=== PATIENT | male | born 1940 | race Two or more races ===

== ENCOUNTER 2021-06-09 11:07 | Inpatient (IN) | payer MEDICARE, MEDICAID ==
[~2021-06-09] VITALS: Ht 175.3 cm; Wt 81.0 kg
[2021-06-09 12:26] LABS: Basophils # (auto) 0 10 ^3/uL (0-0.2); Basophils % (auto) 0.5 % (0.0-2.0); Eosinophils # (auto) 0.1 10 ^3/uL (0-0.8); Eosinophils % (auto) 0.7 % (0.0-7.0); Hematocrit 42.1 % (41.0-53.0); Hemoglobin 14.2 g/dL (13.5-17.5); Lymphocytes # (auto) 0.8 10 ^3/uL (0.4-5.4); Lymphocytes % (auto) 11.1 % (10.0-50.0); Mean Corpuscular Hemoglobin 30.7 pg (28.0-32.0); Mean Corpuscular Hgb Conc. 33.7 g/dL (32.0-36.0); Monocytes # (auto) 0.3 10 ^3/uL (0-1.3); Monocytes % (auto) 3.8 % (0.0-12.0); Neutrophils # (auto) 6.2 10 ^3/uL (1.6-8.6); Neutrophils % (auto) 83.9 % (37.0-80.0); Red Blood Cells 4.62 10^6/uL (4.5-5.90); Red Cell Distribution Width 13.6 % (11.8-14.3); White Blood Cell 7.4 10^3/uL (4.4-10.8)
[2021-06-09 12:38] LABS: Albumin 3.7 g/dL (3.4-5.0); BUN/Creatinine Ratio 18.8; Calcium 9.1 mg/dL (8.5-10.1); Potassium 4.3 mmol/L (3.5-5.1)
[2021-06-09 12:43] LABS: Bilirubin, Total 0.7 mg/dL (0.2-1.0); Total Protein 7.9 g/dL (6.4-8.2)
[2021-06-09 13:12] LABS: INR 1.07 (0.9-1.15)
[2021-06-09] MEDS ORDERED: NITROGLYCERIN 0.4 MG SL TAB SL PRN ×2 (13:30→17:45)
[2021-06-09] MEDS ORDERED: MORPHINE SULFATE INJECTION 2 MG/ML SYRG IV PRN ×2 (13:30→17:45)
[2021-06-09 13:35] LABS: Urine Bacteria NONE SEEN /hpf (None Seen); Urine Blood TRACE /uL (Negative); Urine Mucus FEW (None Seen); Urine Specific Gravity 1.018 (1.001-1.035); Urine WBC 2 /hpf (0 - 3)
[2021-06-09] MEDS ORDERED: DOCUSATE SOD 100 MG CAP PO PRN (13:45)
[2021-06-09] MEDS ORDERED: ONDANSETRON HCL 4 MG/2 ML VIAL IV PRN (13:45)
[2021-06-09] MEDS ORDERED: METOPROLOL TARTRATE 1MG/1ML-5ML VIAL IV PRN (14:15)
[2021-06-09] MEDS ORDERED: DEXTROSE (50%) 50ML SYRG IV PRN (14:15)
[2021-06-09] MEDS: InsuLIN REG 1unit/0.01ml Soln (100units/ml) SC SCH ×2 (17:00→21:34)
[2021-06-09 17:13] VITALS: BP 106/79
[2021-06-09] MEDS: ACCU-CHEK COMFORT CURVE STRIP VI SCH ×2 (17:28→22:00)
[2021-06-09] MEDS ORDERED: METF-370 PO (17:54)
[2021-06-09] MEDS ORDERED: AMLO-489 PO (17:54)
[2021-06-09] MEDS ORDERED: CHOL100040 PO (17:54)
[2021-06-09] MEDS ORDERED: LOSA-39 PO (17:54)
[2021-06-09] MEDS ORDERED: PEN400T PO (17:54)
[2021-06-09] MEDS ORDERED: ASPI-543 PO (17:54)
[2021-06-09] MEDS ORDERED: SIMV80TA73 PO (17:54)
[2021-06-09] MEDS ORDERED: METO25TA5 PO (17:54)
[2021-06-09] MEDS: METOPROLOL TARTRATE 25 MG TAB PO SCH (22:00)
[2021-06-09] MEDS ORDERED: ATORVASTATIN 20 MG TAB PO SCH (22:00)
[2021-06-09 22:27] VITALS: BP 133/73
[2021-06-10] VITALS (27 sets, daily range): BP systolic 109–150; BP diastolic 60–89
[2021-06-10 05:19] LABS: Basophils # (auto) 0 10 ^3/uL (0-0.2); Basophils % (auto) 0.4 % (0.0-2.0); Eosinophils # (auto) 0.1 10 ^3/uL (0-0.8); Eosinophils % (auto) 0.5 % (0.0-7.0); Hematocrit 42.4 % (41.0-53.0); Hemoglobin 14.3 g/dL (13.5-17.5); Lymphocytes # (auto) 1.4 10 ^3/uL (0.4-5.4); Lymphocytes % (auto) 12.2 % (10.0-50.0); Mean Corpuscular Hemoglobin 30.6 pg (28.0-32.0); Mean Corpuscular Hgb Conc. 33.8 g/dL (32.0-36.0); Mean Corpuscular Volume 90.4 fL (80.0-100.0); Monocytes # (auto) 0.9 10 ^3/uL (0-1.3); Monocytes % (auto) 7.9 % (0.0-12.0); Nucleated Red Blood Cells % 0.1 %; Red Blood Cells 4.68 10^6/uL (4.5-5.90); Red Cell Distribution Width 13.6 % (11.8-14.3); White Blood Cell 11.4 10^3/uL (4.4-10.8)
[2021-06-10 05:47] LABS: Potassium 4.1 mmol/L (3.5-5.1)
[2021-06-10 05:54] LABS: Albumin 3.5 g/dL (3.4-5.0); BUN/Creatinine Ratio 15.2; Calcium 9.3 mg/dL (8.5-10.1)
[2021-06-10 06:02] LABS: Bilirubin, Total 0.9 mg/dL (0.2-1.0); Total Protein 7.7 g/dL (6.4-8.2)
[2021-06-10] MEDS: InsuLIN REG 1unit/0.01ml Soln (100units/ml) SC SCH ×4 (06:23→22:50)
[2021-06-10] MEDS: ACCU-CHEK COMFORT CURVE STRIP VI SCH ×4 (07:00→22:51)
[2021-06-10] MEDS ORDERED: METOPROLOL TARTRATE 1MG/1ML-5ML VIAL IV PRN (08:45)
[2021-06-10] MEDS: METOPROLOL TARTRATE 25 MG TAB PO SCH ×2 (09:07→22:00)
[2021-06-10 09:17] LABS: Cholesterol 139 mg/dL (< 200); HDL Cholesterol 51 mg/dL (40-59); LDL Cholesterol 74 mg/dL (< 100); Triglycerides 110 mg/dL (< 150)
[2021-06-10] MEDS ORDERED: ENOXAPARIN SOD 80 MG/0.8ML SYRINGE SC SCH (10:00)
[2021-06-10] MEDS ORDERED: ASPirin 325 MG TAB PO SCH (10:00)
[2021-06-10] MEDS ORDERED: ENOXAPARIN SOD 40 MG/0.4 ML SYRINGE SC SCH (10:00)
[2021-06-10] MEDS ORDERED: HYDROcodone-ACET 5/325MG TAB PO PRN (11:15)
[2021-06-10] MEDS: dilTIAZem 125mg/125ml BAG KIT 125 ML IV SCH (20:45)
[2021-06-10] MEDS: ATORVASTATIN 20 MG TAB PO SCH (22:40)
[2021-06-10] MEDS ORDERED: AMIODARONE HCL 150 MG in D5W 5% 100 ML IV ONE (22:45)
[2021-06-10] MEDS ORDERED: AMIODARONE 450mg/250ml AE 250 ML IV SCH (23:00)
[2021-06-10] MEDS ORDERED: AMIODARONE HCL (50 MG/ ML) 3 ML VIAL IV ONE (23:10)
[2021-06-11] VITALS (45 sets, daily range): BP systolic 12–152; BP diastolic 53–101
[2021-06-11 03:51] LABS: Basophils # (auto) 0 10 ^3/uL (0-0.2); Basophils % (auto) 0.2 % (0.0-2.0); Eosinophils # (auto) 0 10 ^3/uL (0-0.8); Eosinophils % (auto) 0.1 % (0.0-7.0); Hematocrit 43.2 % (41.0-53.0); Hemoglobin 14.6 g/dL (13.5-17.5); Lymphocytes # (auto) 1.8 10 ^3/uL (0.4-5.4); Lymphocytes % (auto) 13.1 % (10.0-50.0); Mean Corpuscular Hemoglobin 30.5 pg (28.0-32.0); Mean Corpuscular Hgb Conc. 33.9 g/dL (32.0-36.0); Mean Corpuscular Volume 89.9 fL (80.0-100.0); Monocytes # (auto) 1.6 10 ^3/uL (0-1.3); Monocytes % (auto) 11.5 % (0.0-12.0); Neutrophils # (auto) 10.3 10 ^3/uL (1.6-8.6); Neutrophils % (auto) 75.1 % (37.0-80.0); Red Cell Distribution Width 13.1 % (11.8-14.3); White Blood Cell 13.8 10^3/uL (4.4-10.8)
[2021-06-11 04:09] LABS: Potassium 4.2 mmol/L (3.5-5.1)
[2021-06-11 04:14] LABS: BUN/Creatinine Ratio 19.6; Calcium 9.3 mg/dL (8.5-10.1); Magnesium 2.4 mg/dL (1.6-2.6)
[2021-06-11] MEDS: AMIODARONE 450mg/250ml AE 250 ML IV SCH ×2 (06:44→20:00)
[2021-06-11] MEDS: InsuLIN REG 1unit/0.01ml Soln (100units/ml) SC SCH ×4 (06:45→22:00)
[2021-06-11] MEDS: ACCU-CHEK COMFORT CURVE STRIP VI SCH ×4 (06:45→22:25)
[2021-06-11] MEDS: ASPirin 81 mg TAB PO SCH (07:51)
[2021-06-11] MEDS: METOPROLOL TARTRATE 25 MG TAB PO SCH ×2 (10:00→22:00)
[2021-06-11 11:42] LABS: Urine Bacteria NONE SEEN /hpf (None Seen); Urine Blood 2+ /uL (Negative); Urine Mucus FEW (None Seen); Urine Specific Gravity 1.026 (1.001-1.035); Urine WBC 1 /hpf (0 - 3)
[2021-06-11] MEDS: dilTIAZem 125mg/125ml BAG KIT 125 ML IV SCH (20:45)
[2021-06-11] MEDS: ATORVASTATIN 20 MG TAB PO SCH (22:24)
[2021-06-12] VITALS (37 sets, daily range): BP systolic 11–156; BP diastolic 63–93
[2021-06-12 06:44] LABS: Basophils # (auto) 0 10 ^3/uL (0-0.2); Basophils % (auto) 0.4 % (0.0-2.0); Eosinophils # (auto) 0 10 ^3/uL (0-0.8); Eosinophils % (auto) 0.4 % (0.0-7.0); Hematocrit 43.9 % (41.0-53.0); Hemoglobin 15.3 g/dL (13.5-17.5); Lymphocytes # (auto) 1.8 10 ^3/uL (0.4-5.4); Lymphocytes % (auto) 15.6 % (10.0-50.0); Mean Corpuscular Hemoglobin 30.9 pg (28.0-32.0); Mean Corpuscular Hgb Conc. 34.7 g/dL (32.0-36.0); Monocytes # (auto) 1.3 10 ^3/uL (0-1.3); Monocytes % (auto) 11.2 % (0.0-12.0); Neutrophils # (auto) 8.3 10 ^3/uL (1.6-8.6); Neutrophils % (auto) 72.4 % (37.0-80.0); Red Blood Cells 4.94 10^6/uL (4.5-5.90); Red Cell Distribution Width 13.3 % (11.8-14.3); White Blood Cell 11.5 10^3/uL (4.4-10.8)
[2021-06-12] MEDS: InsuLIN REG 1unit/0.01ml Soln (100units/ml) SC SCH ×4 (06:49→21:41)
[2021-06-12] MEDS: ACCU-CHEK COMFORT CURVE STRIP VI SCH ×4 (06:50→21:45)
[2021-06-12 07:02] LABS: BUN/Creatinine Ratio 17.2; Calcium 8.8 mg/dL (8.5-10.1); Magnesium 2.4 mg/dL (1.6-2.6); Potassium 3.6 mmol/L (3.5-5.1)
[2021-06-12] MEDS: METOPROLOL TARTRATE 25 MG TAB PO SCH ×2 (09:59→21:40)
[2021-06-12] MEDS: ASPirin 81 mg TAB PO SCH (09:59)
[2021-06-12] MEDS: AMIODARONE 450mg/250ml AE 250 ML IV SCH (11:00)
[2021-06-12] MEDS: ACETAMINOPHEN 325 MG TAB PO PRN (18:25)
[2021-06-12] MEDS: dilTIAZem 125mg/125ml BAG KIT 125 ML IV SCH (20:45)
[2021-06-12] MEDS: DOCUSATE SOD 100 MG CAP PO SCH (21:36)
[2021-06-12] MEDS: AMIODARONE HCL 200 MG TAB PO SCH (21:36)
[2021-06-12] MEDS: ATORVASTATIN 20 MG TAB PO SCH (21:37)
[2021-06-13 04:50] LABS: Basophils # (auto) 0 10 ^3/uL (0-0.2); Basophils % (auto) 0.3 % (0.0-2.0); Eosinophils # (auto) 0.2 10 ^3/uL (0-0.8); Eosinophils % (auto) 1.6 % (0.0-7.0); Hematocrit 40.7 % (41.0-53.0); Hemoglobin 13.7 g/dL (13.5-17.5); Lymphocytes # (auto) 1.8 10 ^3/uL (0.4-5.4); Mean Corpuscular Hemoglobin 30.8 pg (28.0-32.0); Mean Corpuscular Hgb Conc. 33.5 g/dL (32.0-36.0); Mean Corpuscular Volume 91.9 fL (80.0-100.0); Monocytes # (auto) 1.5 10 ^3/uL (0-1.3); Monocytes % (auto) 13.1 % (0.0-12.0); Neutrophils # (auto) 7.9 10 ^3/uL (1.6-8.6); Red Blood Cells 4.43 10^6/uL (4.5-5.90); Red Cell Distribution Width 13.6 % (11.8-14.3); White Blood Cell 11.5 10^3/uL (4.4-10.8)
[2021-06-13 04:58] LABS: Anion Gap 6 (5-15); BUN/Creatinine Ratio 20.3; Blood Urea Nitrogen 13 mg/dL (7-18); Calcium 6.7 mg/dL (8.5-10.1); Carbon Dioxide 20 mmol/L (21-32); Chloride 114 mmol/L (98-107); GFR African American 154 mL/min; GFR Non-African American 128 mL/min; Glucose 65 mg/dL (74-106); Magnesium 2.3 mg/dL (1.6-2.6); Sodium 140 mmol/L (136-145)
[2021-06-13 05:24] VITALS: BP 137/88
[2021-06-13 05:46] LABS: Potassium 2.9 mmol/L (3.5-5.1)
[2021-06-13] MEDS: InsuLIN REG 1unit/0.01ml Soln (100units/ml) SC SCH ×4 (06:08→22:22)
[2021-06-13] MEDS: ACCU-CHEK COMFORT CURVE STRIP VI SCH ×4 (06:08→22:16)
[2021-06-13] MEDS: POTASSIUM CHL 10MEQ/50ML 50 ML IV SCH ×6 (06:09→15:49)
[2021-06-13 09:00] VITALS: BP 119/77
[2021-06-13] MEDS: ASPirin 81 mg TAB PO SCH (10:00)
[2021-06-13] MEDS: AMIODARONE HCL 200 MG TAB PO SCH ×2 (10:30→22:15)
[2021-06-13] MEDS: DOCUSATE SOD 100 MG CAP PO SCH ×2 (10:31→22:15)
[2021-06-13] MEDS: METOPROLOL TARTRATE 25 MG TAB PO SCH ×2 (10:31→22:16)
[2021-06-13] MEDS: POLYETHYLENE GLYCOL 17 GM PWDR PO SCH (12:40)
[2021-06-13 13:00] VITALS: BP 120/76
[2021-06-13] MEDS ORDERED: POTASSIUM CHL 10MEQ/50ML 50 ML IV ONE ×2 (14:10→15:48)
[2021-06-13 17:12] VITALS: BP 125/68
[2021-06-13 22:00] VITALS: BP 119/71
[2021-06-13] MEDS: ATORVASTATIN 20 MG TAB PO SCH (22:15)
[2021-06-14 05:00] VITALS: BP 112/72
[2021-06-14 06:39] LABS: Basophils # (auto) 0.1 10 ^3/uL (0-0.2); Basophils % (auto) 0.6 % (0.0-2.0); Eosinophils # (auto) 0.3 10 ^3/uL (0-0.8); Eosinophils % (auto) 2.3 % (0.0-7.0); Hematocrit 41.4 % (41.0-53.0); Hemoglobin 14.7 g/dL (13.5-17.5); Lymphocytes # (auto) 2.3 10 ^3/uL (0.4-5.4); Lymphocytes % (auto) 20.2 % (10.0-50.0); Mean Corpuscular Hemoglobin 31.4 pg (28.0-32.0); Mean Corpuscular Hgb Conc. 35.6 g/dL (32.0-36.0); Mean Corpuscular Volume 88.3 fL (80.0-100.0); Monocytes # (auto) 1.3 10 ^3/uL (0-1.3); Monocytes % (auto) 11.5 % (0.0-12.0); Neutrophils # (auto) 7.4 10 ^3/uL (1.6-8.6); Neutrophils % (auto) 65.4 % (37.0-80.0); Nucleated Red Blood Cells % 0.1 %; Red Blood Cells 4.69 10^6/uL (4.5-5.90); Red Cell Distribution Width 13.5 % (11.8-14.3); White Blood Cell 11.4 10^3/uL (4.4-10.8)
[2021-06-14] MEDS: InsuLIN REG 1unit/0.01ml Soln (100units/ml) SC SCH ×4 (06:43→21:35)
[2021-06-14] MEDS: ACCU-CHEK COMFORT CURVE STRIP VI SCH ×4 (06:43→21:33)
[2021-06-14 06:52] LABS: BUN/Creatinine Ratio 17.9; Calcium 8.7 mg/dL (8.5-10.1); Magnesium 2.5 mg/dL (1.6-2.6); Potassium 3.7 mmol/L (3.5-5.1)
[2021-06-14] MEDS: DOCUSATE SOD 100 MG CAP PO SCH ×2 (09:09→21:31)
[2021-06-14] MEDS: AMIODARONE HCL 200 MG TAB PO SCH ×2 (09:09→21:32)
[2021-06-14] MEDS: POLYETHYLENE GLYCOL 17 GM PWDR PO SCH (09:10)
[2021-06-14] MEDS: METOPROLOL TARTRATE 25 MG TAB PO SCH (09:10)
[2021-06-14 09:12] VITALS: BP 123/68
[2021-06-14 09:17] VITALS: BP_SYST 123; BP_SYST 138; BP_DIAS 68; BP_DIAS 73
[2021-06-14] MEDS: ASPirin 81 mg TAB PO SCH (10:54)
[2021-06-14] MEDS ORDERED: ASPirin-EC 81 mg tab PO ONE (11:00)
[2021-06-14 12:00] VITALS: BP 125/65
[2021-06-14] MEDS ORDERED: ERGOCALCIFEROL 50,000 UNIT(1.25MG) CAP PO ONE (15:45)
[2021-06-14 16:00] VITALS: BP 123/81
[2021-06-14] MEDS: METOPROLOL TARTRATE 50 MG TAB PO SCH ×2 (16:22→21:33)
[2021-06-14] MEDS: ATORVASTATIN 20 MG TAB PO SCH (21:32)
[2021-06-14 21:37] VITALS: BP 126/70
[2021-06-15 05:00] VITALS: BP 118/73
[2021-06-15] MEDS: InsuLIN REG 1unit/0.01ml Soln (100units/ml) SC SCH ×4 (07:00→21:50)
[2021-06-15] MEDS: ACCU-CHEK COMFORT CURVE STRIP VI SCH ×4 (07:21→21:49)
[2021-06-15 08:56] VITALS: BP 120/73
[2021-06-15] MEDS: CHOLECALCIFEROL (VITD3) 2,000 UNIT CAP/TAB PO SCH (09:35)
[2021-06-15] MEDS: POLYETHYLENE GLYCOL 17 GM PWDR PO SCH (09:35)
[2021-06-15] MEDS: DOCUSATE SOD 100 MG CAP PO SCH ×2 (09:36→21:45)
[2021-06-15] MEDS: METOPROLOL TARTRATE 50 MG TAB PO SCH ×2 (09:36→21:49)
[2021-06-15] MEDS: AMIODARONE HCL 200 MG TAB PO SCH ×2 (09:36→21:45)
[2021-06-15] MEDS ORDERED: ASPirin-EC 81 mg tab PO SCH (10:00)
[2021-06-15 12:48] VITALS: BP 110/70
[2021-06-15 16:34] VITALS: BP 141/71
[2021-06-15] MEDS: ATORVASTATIN 20 MG TAB PO SCH (21:45)
[2021-06-15] MEDS: APIXABAN 5 MG TAB PO SCH (21:45)
[2021-06-15 22:00] VITALS: BP 138/70
[2021-06-16 05:00] VITALS: BP 125/70
[2021-06-16] MEDS: ACETAMINOPHEN 325 MG TAB PO PRN (06:25)
[2021-06-16] MEDS: InsuLIN REG 1unit/0.01ml Soln (100units/ml) SC SCH ×2 (06:25→11:11)
[2021-06-16] MEDS: ACCU-CHEK COMFORT CURVE STRIP VI SCH ×2 (06:25→11:11)
[2021-06-16 07:17] LABS: Basophils # (auto) 0 10 ^3/uL (0-0.2); Basophils % (auto) 0.3 % (0.0-2.0); Eosinophils # (auto) 0.4 10 ^3/uL (0-0.8); Hematocrit 38.2 % (41.0-53.0); Hemoglobin 12.8 g/dL (13.5-17.5); Lymphocytes # (auto) 2.2 10 ^3/uL (0.4-5.4); Lymphocytes % (auto) 19.7 % (10.0-50.0); Mean Corpuscular Hemoglobin 30.4 pg (28.0-32.0); Mean Corpuscular Hgb Conc. 33.6 g/dL (32.0-36.0); Mean Corpuscular Volume 90.5 fL (80.0-100.0); Monocytes # (auto) 1.1 10 ^3/uL (0-1.3); Monocytes % (auto) 9.7 % (0.0-12.0); Neutrophils # (auto) 7.4 10 ^3/uL (1.6-8.6); Neutrophils % (auto) 66.3 % (37.0-80.0); Red Blood Cells 4.22 10^6/uL (4.5-5.90); Red Cell Distribution Width 13.4 % (11.8-14.3); White Blood Cell 11.1 10^3/uL (4.4-10.8)
[2021-06-16 07:27] LABS: Calcium 8.6 mg/dL (8.5-10.1); Potassium 3.8 mmol/L (3.5-5.1)
[2021-06-16 07:30] LABS: BUN/Creatinine Ratio 21.7
[2021-06-16 08:57] VITALS: BP 118/75
[2021-06-16] MEDS: DOCUSATE SOD 100 MG CAP PO SCH (10:00)
[2021-06-16] MEDS: CHOLECALCIFEROL (VITD3) 2,000 UNIT CAP/TAB PO SCH (10:00)
[2021-06-16] MEDS: POLYETHYLENE GLYCOL 17 GM PWDR PO SCH (10:00)
[2021-06-16] MEDS: APIXABAN 5 MG TAB PO SCH (10:00)
[2021-06-16] MEDS: METOPROLOL TARTRATE 50 MG TAB PO SCH (10:00)
[2021-06-16] MEDS: AMIODARONE HCL 200 MG TAB PO SCH (11:08)
[2021-06-16] MEDS ORDERED: APIX5TAB PO (11:12)
[2021-06-16] MEDS ORDERED: AMIO200T33 PO (11:12)
[2021-06-16] MEDS ORDERED: CHOL20007 PO (11:16)
[2021-06-16] MEDS ORDERED: ATOR20TA PO (11:16)
[2021-06-16] MEDS ORDERED: METO1TAB77 PO (11:16)
[2021-06-16 12:49] VITALS: BP 120/74
[2021-06-16 13:30] VITALS: BP 118/73
[2021-06-16 14:37] VITALS: BP 131/75
== END 2021-06-16 15:00 | disposition home health service (06) | DRG 45 ==
LOC: ER 11:07 → TELE 13:20 → TELE-WESTW 17:00 → ICU WEST 06-10 10:08 → TELE-WESTW 06-13 03:30
PROVIDERS: ADMIT Internal Medicine; ATTEND Internal Medicine
PROC: 05HB33Z Insertion of Infusion Device into Right Basilic Vein, Percutaneous Approach (ICD-10-PCS; principal; 2021-06-10)
PROC: B54MZZA Ultrasonography of Right Upper Extremity Veins, Guidance (ICD-10-PCS; 2021-06-10)
DX: I63.531 Cerebral infarction due to unspecified occlusion or stenosis of right posterior cerebral artery (principal); I62.9 Nontraumatic intracranial hemorrhage, unspecified; G93.6 Cerebral edema; D72.829 Elevated white blood cell count, unspecified; E11.42 Type 2 diabetes mellitus with diabetic polyneuropathy; E11.51 Type 2 diabetes mellitus with diabetic peripheral angiopathy without gangrene; E55.9 Vitamin D deficiency, unspecified; I48.91 Unspecified atrial fibrillation; I50.42 Chronic combined systolic (congestive) and diastolic (congestive) heart failure; Z20.822 Contact with and (suspected) exposure to COVID-19; E78.5 Hyperlipidemia, unspecified; E87.6 Hypokalemia; I11.0 Hypertensive heart disease with heart failure; Z79.01 Long term (current) use of anticoagulants; Z79.82 Long term (current) use of aspirin; Z83.3 Family history of diabetes mellitus; Z82.49 Family history of ischemic heart disease and other diseases of the circulatory system
CPT/HCPCS: 36415; 70450; 70551; 71045; 80048; 80053; 80061; 81001; 82306; 82962; 83036; 83735; 83880; 84132; 84439; 84443; 84484; 85025; 85610; 85730; 87426; 92610; 93005; 93306; 93886; 97116; 97163; 97530; G0378; J1815; J7060

== ENCOUNTER 2021-09-13 12:38 | Inpatient (IN) | payer MEDICARE, MEDICAID ==
[~2021-09-13] VITALS: Ht 175.3 cm; Wt 73.4 kg
[~2021-09-13 12:38] MED LIST: APIX5TAB PO; CHOL20007 PO; METF-370 PO; METO1TAB77 PO; PEN400T PO
[2021-09-13 14:59] LABS: Basophils # (auto) 0.1 10 ^3/uL (0-0.2); Basophils % (auto) 2.3 % (0.0-2.0); Eosinophils # (auto) 0 10 ^3/uL (0-0.8); Eosinophils % (auto) 0.2 % (0.0-7.0); Hematocrit 47.8 % (41.0-53.0); Hemoglobin 16.3 g/dL (13.5-17.5); Lymphocytes # (auto) 1.2 10 ^3/uL (0.4-5.4); Lymphocytes % (auto) 18.9 % (10.0-50.0); Mean Corpuscular Hemoglobin 30.4 pg (28.0-32.0); Mean Corpuscular Hgb Conc. 34.1 g/dL (32.0-36.0); Mean Corpuscular Volume 89.2 fL (80.0-100.0); Monocytes # (auto) 0.7 10 ^3/uL (0-1.3); Neutrophils # (auto) 4.1 10 ^3/uL (1.6-8.6); Neutrophils % (auto) 66.6 % (37.0-80.0); Nucleated Red Blood Cells % 0.1 %; Red Blood Cells 5.36 10^6/uL (4.5-5.90); Red Cell Distribution Width 15.1 % (11.8-14.3); White Blood Cell 6.2 10^3/uL (4.4-10.8)
[2021-09-13 15:19] LABS: Albumin 3.3 g/dL (3.4-5.0); Calcium 8.6 mg/dL (8.5-10.1); Potassium 3.3 mmol/L (3.5-5.1)
[2021-09-13 15:23] LABS: BUN/Creatinine Ratio 19.7; Total Protein 7.6 g/dL (6.4-8.2)
[2021-09-13] MEDS ORDERED: DexAMETHasone SOD PHOS 4 MG/1ML SDV INJ IV ONE (15:45)
[2021-09-13] MEDS ORDERED: SODIUM CHLORIDE 0.9% 500 ML IV ONE (17:00)
[2021-09-13] MEDS ORDERED: MORPHINE SULFATE INJ 2 MG/ml SYRG IV PRN (21:30)
[2021-09-13] MEDS ORDERED: TEMAZEPAM 15 MG CAP PO PRN (21:30)
[2021-09-13] MEDS ORDERED: ONDANSETRON HCL 4 MG/2 ML VIAL IV PRN (21:30)
[2021-09-13] MEDS ORDERED: NITROGLYCERIN 0.4 MG SL TAB SL PRN (21:30)
[2021-09-13] MEDS ORDERED: ALBUTEROL SULF 2.5 MG/0.5ML(0.5%) NEB SOLN NEB PRN (21:30)
[2021-09-13] MEDS ORDERED: ACETAMINOPHEN 325 MG TAB PO PRN (21:30)
[2021-09-13] MEDS ORDERED: POTASSIUM CHL 20 Meq TABLET PO ONE (21:30)
[2021-09-13] MEDS ORDERED: DEXTROSE (50%) 50ML SYRG IV PRN (21:30)
[2021-09-13] MEDS ORDERED: ALBUTEROL SULF HFA 90MCG INH 200DOSE IN PRN (21:45)
[2021-09-13] MEDS: ACCU-CHEK COMFORT CURVE STRIP VI SCH (22:00)
[2021-09-13] MEDS: InsuLIN REG 1unit/0.01ml Soln (100units/ml) SC SCH (22:00)
[2021-09-13] MEDS: AMIODARONE HCL 200 MG TAB PO SCH (22:00)
[2021-09-13 22:01] VITALS: BP 108/60
[2021-09-13] MEDS: APIXABAN 5 MG TAB PO SCH (23:17)
[2021-09-13] MEDS: ASCORBIC ACID 500 MG TAB PO SCH (23:17)
[2021-09-13] MEDS: METOPROLOL TARTRATE 50 MG TAB PO SCH (23:17)
[2021-09-13] MEDS: ATORVASTATIN 20 MG TAB PO SCH (23:18)
[2021-09-13 23:57] LABS: Lactic Acid w/Reflex 2.5 mmol/L (0.4-2.0)
[2021-09-14 01:35] LABS: Urine Bacteria NONE SEEN /hpf (None Seen); Urine Blood TRACE /uL (Negative); Urine Hyaline Cast FEW /lpf (0 - 2); Urine Mucus FEW (None Seen); Urine WBC 4 /hpf (0 - 3)
[2021-09-14 04:59] LABS: Basophils # (auto) 0 10 ^3/uL (0-0.2); Basophils % (auto) 0.2 % (0.0-2.0); Eosinophils # (auto) 0 10 ^3/uL (0-0.8); Hematocrit 45.7 % (41.0-53.0); Hemoglobin 15.8 g/dL (13.5-17.5); Lymphocytes # (auto) 0.8 10 ^3/uL (0.4-5.4); Lymphocytes % (auto) 13.9 % (10.0-50.0); Mean Corpuscular Hemoglobin 30.5 pg (28.0-32.0); Mean Corpuscular Hgb Conc. 34.6 g/dL (32.0-36.0); Mean Corpuscular Volume 88.1 fL (80.0-100.0); Monocytes # (auto) 0.2 10 ^3/uL (0-1.3); Monocytes % (auto) 4.2 % (0.0-12.0); Neutrophils # (auto) 4.8 10 ^3/uL (1.6-8.6); Neutrophils % (auto) 81.7 % (37.0-80.0); Nucleated Red Blood Cells % 0.1 %; Red Blood Cells 5.18 10^6/uL (4.5-5.90); Red Cell Distribution Width 14.9 % (11.8-14.3); White Blood Cell 5.9 10^3/uL (4.4-10.8)
[2021-09-14 05:16] LABS: Albumin 3.3 g/dL (3.4-5.0); BUN/Creatinine Ratio 21.1; Calcium 8.9 mg/dL (8.5-10.1); Potassium 3.6 mmol/L (3.5-5.1)
[2021-09-14 05:19] LABS: Total Protein 7.2 g/dL (6.4-8.2)
[2021-09-14] MEDS: ACCU-CHEK COMFORT CURVE STRIP VI SCH ×3 (07:06→18:30)
[2021-09-14] MEDS: InsuLIN REG 1unit/0.01ml Soln (100units/ml) SC SCH ×4 (07:12→22:00)
[2021-09-14] MEDS ORDERED: PANTOPRAZOLE 40 MG TAB PO SCH (10:00)
[2021-09-14] MEDS ORDERED: DexAMETHasone SOD PHOS 10MG/1ML VIAL INJ IV SCH (10:00)
[2021-09-14] MEDS: AMIODARONE HCL 200 MG TAB PO SCH ×2 (11:52→22:00)
[2021-09-14] MEDS: METOPROLOL TARTRATE 50 MG TAB PO SCH ×2 (11:52→22:00)
[2021-09-14] MEDS: ZINC SULFATE 220mg CAP or TAB PO SCH (11:52)
[2021-09-14] MEDS: APIXABAN 5 MG TAB PO SCH ×2 (11:52→22:00)
[2021-09-14] MEDS: MULTIPLE VITAMIN TAB PO SCH (11:52)
[2021-09-14] MEDS: SODIUM CHLORIDE 0.9% 1,000 ML IV SCH ×2 (11:53→16:37)
[2021-09-14] MEDS: ASCORBIC ACID 500 MG TAB PO SCH ×2 (11:53→22:00)
[2021-09-14 22:00] VITALS: BP 132/69
[2021-09-14] MEDS: ATORVASTATIN 20 MG TAB PO SCH (22:00)
[2021-09-14 23:20] VITALS: BP 132/82
[2021-09-15] MEDS: ACCU-CHEK COMFORT CURVE STRIP VI SCH ×5 (00:29→21:33)
[2021-09-15] MEDS: SODIUM CHLORIDE 0.9% 1,000 ML IV SCH (02:55)
[2021-09-15 05:00] VITALS: BP 100/75
[2021-09-15] MEDS: InsuLIN REG 1unit/0.01ml Soln (100units/ml) SC SCH ×4 (06:04→21:34)
[2021-09-15 06:58] LABS: Albumin 2.8 g/dL (3.4-5.0); Calcium 8.6 mg/dL (8.5-10.1); Potassium 3.8 mmol/L (3.5-5.1)
[2021-09-15 07:00] LABS: Bilirubin, Total 0.8 mg/dL (0.2-1.0); Total Protein 6.2 g/dL (6.4-8.2)
[2021-09-15 08:40] VITALS: BP 97/68
[2021-09-15 09:38] LABS: Hepatitis B Surface Antibody Positive (Negative)
[2021-09-15 10:12] LABS: Hepatitis A Total Antibody Positive (Negative)
[2021-09-15] MEDS: AMIODARONE HCL 200 MG TAB PO SCH ×2 (11:05→21:32)
[2021-09-15] MEDS: APIXABAN 5 MG TAB PO SCH ×2 (11:05→21:32)
[2021-09-15] MEDS: MULTIPLE VITAMIN TAB PO SCH (11:05)
[2021-09-15] MEDS: ZINC SULFATE 220mg CAP or TAB PO SCH (11:05)
[2021-09-15] MEDS: METOPROLOL TARTRATE 50 MG TAB PO SCH ×2 (11:06→21:33)
[2021-09-15] MEDS: ASCORBIC ACID 500 MG TAB PO SCH ×2 (11:07→21:22)
[2021-09-15 12:10] LABS: Hepatitis C Antibody Negative (Negative)
[2021-09-15 12:41] VITALS: BP 145/67
[2021-09-15 16:14] VITALS: BP 126/78
[2021-09-15 22:00] VITALS: BP 119/78
[2021-09-16 05:00] VITALS: BP 108/70
[2021-09-16] MEDS: ACCU-CHEK COMFORT CURVE STRIP VI SCH ×3 (05:55→17:00)
[2021-09-16] MEDS: InsuLIN REG 1unit/0.01ml Soln (100units/ml) SC SCH ×3 (05:55→17:00)
[2021-09-16 06:14] LABS: Potassium 3.3 mmol/L (3.5-5.1)
[2021-09-16 06:16] LABS: INR 1.19 (0.9-1.15)
[2021-09-16 06:20] LABS: Albumin 2.8 g/dL (3.4-5.0); BUN/Creatinine Ratio 15.3; Bilirubin, Total 0.9 mg/dL (0.2-1.0); Calcium 8.4 mg/dL (8.5-10.1); Total Protein 6.1 g/dL (6.4-8.2)
[2021-09-16] MEDS ORDERED: ASCO500T11 PO (08:31)
[2021-09-16] MEDS ORDERED: ALBUAER3 IN (08:31)
[2021-09-16] MEDS ORDERED: CHOL500035 PO (08:31)
[2021-09-16] MEDS ORDERED: ZINC220C10 PO (08:31)
[2021-09-16 09:00] VITALS: BP 132/68
[2021-09-16] MEDS: MULTIPLE VITAMIN TAB PO SCH (09:34)
[2021-09-16] MEDS: ZINC SULFATE 220mg CAP or TAB PO SCH (09:35)
[2021-09-16] MEDS: APIXABAN 5 MG TAB PO SCH (09:35)
[2021-09-16] MEDS: METOPROLOL TARTRATE 50 MG TAB PO SCH (09:35)
[2021-09-16] MEDS: ASCORBIC ACID 500 MG TAB PO SCH (09:35)
[2021-09-16] MEDS: AMIODARONE HCL 200 MG TAB PO SCH (09:35)
[2021-09-16] MEDS ORDERED: ERGOCALCIFEROL 50,000 UNIT(1.25MG) CAP PO SCH (10:00)
[2021-09-16 12:55] VITALS: BP 117/68
[2021-09-16 14:37] VITALS: BP 132/68
[2021-09-16 17:00] VITALS: BP 140/79
== END 2021-09-16 18:30 | disposition home or self-care (01) | DRG 137 ==
LOC: ER 12:38 → TELE 21:27 → TELE-EAST 09-14 21:45
PROVIDERS: ADMIT Nurse Practitioner; ATTEND Family Medicine
DX: U07.1 COVID-19 (principal); K85.90 Acute pancreatitis without necrosis or infection, unspecified; D68.9 Coagulation defect, unspecified; D68.69 Other thrombophilia; I48.20 Chronic atrial fibrillation, unspecified; E11.21 Type 2 diabetes mellitus with diabetic nephropathy; E86.0 Dehydration; E11.40 Type 2 diabetes mellitus with diabetic neuropathy, unspecified; I10 Essential (primary) hypertension; E78.00 Pure hypercholesterolemia, unspecified; E78.5 Hyperlipidemia, unspecified; R74.01 Elevation of levels of liver transaminase levels; R74.8 Abnormal levels of other serum enzymes; R79.89 Other specified abnormal findings of blood chemistry; Z20.822 Contact with and (suspected) exposure to COVID-19; Z86.73 Personal history of transient ischemic attack (TIA), and cerebral infarction without residual deficits
CPT/HCPCS: 36415; 36600; 71045; 74176; 76705; 80053; 81001; 82728; 82805; 82962; 83605; 83690; 84484; 85025; 85610; 86704; 86706; 86708; 86803; 87340; 93005; 96361; 96374; G0378; J1100; J1815

== ENCOUNTER 2021-10-21 19:30 | Inpatient (IN) | payer MEDICARE, MEDICAID ==
[~2021-10-21] VITALS: Ht 175.3 cm; Wt 70.0 kg
[~2021-10-21 19:30] MED LIST changes: +ALBUAER3 IN; +ASCO500T11 PO; +CHOL500035 PO; +ZINC220C10 PO
[2021-10-21 20:34] LABS: Basophils # (auto) 0 10 ^3/uL (0-0.2); Basophils % (auto) 0.4 % (0.0-2.0); Eosinophils # (auto) 0 10 ^3/uL (0-0.8); Eosinophils % (auto) 0.3 % (0.0-7.0); Hematocrit 46.4 % (41.0-53.0); Hemoglobin 14.9 g/dL (13.5-17.5); Lymphocytes % (auto) 11.5 % (10.0-50.0); Mean Corpuscular Hemoglobin 29.1 pg (28.0-32.0); Mean Corpuscular Hgb Conc. 32.1 g/dL (32.0-36.0); Mean Corpuscular Volume 90.5 fL (80.0-100.0); Monocytes # (auto) 0.6 10 ^3/uL (0-1.3); Monocytes % (auto) 7.2 % (0.0-12.0); Neutrophils # (auto) 7.2 10 ^3/uL (1.6-8.6); Neutrophils % (auto) 80.6 % (37.0-80.0); Red Blood Cells 5.13 10^6/uL (4.5-5.90); Red Cell Distribution Width 16.9 % (11.8-14.3); White Blood Cell 8.9 10^3/uL (4.4-10.8)
[2021-10-21 20:39] LABS: Albumin 3.1 g/dL (3.4-5.0); BUN/Creatinine Ratio 21.7; Magnesium 1.9 mg/dL (1.6-2.6); Potassium 4.3 mmol/L (3.5-5.1)
[2021-10-21 20:42] LABS: Bilirubin, Total 0.6 mg/dL (0.2-1.0); Total Protein 6.9 g/dL (6.4-8.2)
[2021-10-21 21:15] LABS: INR 1.15 (0.9-1.15)
[2021-10-22] MEDS ORDERED: DEXTROSE (50%) 50ML SYRG IV PRN (01:45)
[2021-10-22] MEDS ORDERED: HYDROcodone-ACET 5/325MG TAB PO PRN (01:45)
[2021-10-22] MEDS ORDERED: ONDANSETRON HCL 4 MG/2 ML VIAL IV PRN (01:45)
[2021-10-22] MEDS ORDERED: ACETAMINOPHEN 325 MG TAB PO PRN (01:45)
[2021-10-22] MEDS ORDERED: DOCUSATE SOD 100 MG CAP PO PRN (01:45)
[2021-10-22] MEDS ORDERED: NITROGLYCERIN 0.4 MG SL TAB SL PRN (02:15)
[2021-10-22] MEDS ORDERED: MORPHINE SULFATE INJ 2 MG/ml SYRG IV PRN (02:15)
[2021-10-22 04:31] LABS: Urine Amorphous Crystal FEW /hpf (None Seen); Urine Bacteria NONE SEEN /hpf (None Seen); Urine Blood TRACE /uL (Negative); Urine Hyaline Cast FEW /lpf (0 - 2); Urine Mucus FEW (None Seen); Urine Specific Gravity 1.026 (1.001-1.035); Urine WBC 4 /hpf (0 - 3)
[2021-10-22] MEDS: SODIUM CHLOR 0.9% PF (SALINE LOCK) 10ML VIAL/SYR IV SCH ×3 (06:04→22:11)
[2021-10-22] MEDS: ACCU-CHEK COMFORT CURVE STRIP VI SCH ×4 (06:27→22:13)
[2021-10-22] MEDS: InsuLIN REG 1unit/0.01ml Soln (100units/ml) SC SCH ×4 (06:29→22:24)
[2021-10-22 07:22] LABS: Basophils # (auto) 0 10 ^3/uL (0-0.2); Basophils % (auto) 0.3 % (0.0-2.0); Eosinophils # (auto) 0 10 ^3/uL (0-0.8); Eosinophils % (auto) 0.2 % (0.0-7.0); Hematocrit 44.1 % (41.0-53.0); Hemoglobin 14.5 g/dL (13.5-17.5); Lymphocytes % (auto) 12.5 % (10.0-50.0); Mean Corpuscular Hemoglobin 29.5 pg (28.0-32.0); Mean Corpuscular Volume 89.5 fL (80.0-100.0); Monocytes # (auto) 0.7 10 ^3/uL (0-1.3); Monocytes % (auto) 8.1 % (0.0-12.0); Neutrophils # (auto) 6.4 10 ^3/uL (1.6-8.6); Neutrophils % (auto) 78.9 % (37.0-80.0); Nucleated Red Blood Cells % 0.1 %; Red Blood Cells 4.92 10^6/uL (4.5-5.90); Red Cell Distribution Width 16.7 % (11.8-14.3); White Blood Cell 8.1 10^3/uL (4.4-10.8)
[2021-10-22 07:42] LABS: Albumin 2.9 g/dL (3.4-5.0)
[2021-10-22 07:44] LABS: BUN/Creatinine Ratio 23.2
[2021-10-22 07:47] LABS: Bilirubin, Total 0.6 mg/dL (0.2-1.0); Total Protein 6.2 g/dL (6.4-8.2)
[2021-10-22] MEDS: FAMOTIDINE (10MG/ML) 2ML VL IV SCH ×2 (10:32→22:10)
[2021-10-22 10:33] VITALS: BP 112/79
[2021-10-22] MEDS: METOPROLOL TARTRATE 25 MG TAB PO SCH ×2 (10:34→22:10)
[2021-10-22] MEDS: APIXABAN 5 MG TAB PO SCH ×2 (10:34→22:10)
[2021-10-22 13:00] VITALS: BP 112/70
[2021-10-22] MEDS ORDERED: AMIO200T33 PO (13:59)
[2021-10-22] MEDS ORDERED: ATOR10TA PO (14:01)
[2021-10-22] MEDS ORDERED: APIX5TAB4 PO (14:06)
[2021-10-22] MEDS ORDERED: ATOR20TA PO (14:07)
[2021-10-22 16:40] VITALS: BP 121/81
[2021-10-22 20:00] VITALS: BP 130/80
[2021-10-22 22:00] VITALS: BP 130/80
[2021-10-23 05:00] VITALS: BP_SYST 125; BP_SYST 151; BP_DIAS 65; BP_DIAS 82
[2021-10-23 05:49] LABS: Basophils # (auto) 0 10 ^3/uL (0-0.2); Basophils % (auto) 0.4 % (0.0-2.0); Eosinophils # (auto) 0.1 10 ^3/uL (0-0.8); Eosinophils % (auto) 0.7 % (0.0-7.0); Hematocrit 41.1 % (41.0-53.0); Hemoglobin 13.9 g/dL (13.5-17.5); Lymphocytes # (auto) 1.4 10 ^3/uL (0.4-5.4); Lymphocytes % (auto) 14.1 % (10.0-50.0); Mean Corpuscular Hemoglobin 30.2 pg (28.0-32.0); Mean Corpuscular Hgb Conc. 33.7 g/dL (32.0-36.0); Mean Corpuscular Volume 89.6 fL (80.0-100.0); Monocytes # (auto) 0.7 10 ^3/uL (0-1.3); Monocytes % (auto) 7.3 % (0.0-12.0); Neutrophils # (auto) 7.8 10 ^3/uL (1.6-8.6); Neutrophils % (auto) 77.5 % (37.0-80.0); Red Blood Cells 4.59 10^6/uL (4.5-5.90)
[2021-10-23 06:06] LABS: Calcium 8.8 mg/dL (8.5-10.1); Potassium 4.1 mmol/L (3.5-5.1)
[2021-10-23 06:09] LABS: Albumin 2.9 g/dL (3.4-5.0); BUN/Creatinine Ratio 23.6
[2021-10-23] MEDS: SODIUM CHLOR 0.9% PF (SALINE LOCK) 10ML VIAL/SYR IV SCH ×3 (06:11→22:06)
[2021-10-23 06:12] LABS: Bilirubin, Total 0.5 mg/dL (0.2-1.0); Total Protein 6.1 g/dL (6.4-8.2)
[2021-10-23] MEDS: ACCU-CHEK COMFORT CURVE STRIP VI SCH ×4 (06:27→22:05)
[2021-10-23] MEDS: InsuLIN REG 1unit/0.01ml Soln (100units/ml) SC SCH ×4 (06:28→21:58)
[2021-10-23 09:00] VITALS: BP 114/76
[2021-10-23 12:41] VITALS: BP 157/76
[2021-10-23] MEDS: METOPROLOL TARTRATE 25 MG TAB PO SCH ×2 (12:45→22:06)
[2021-10-23] MEDS: FAMOTIDINE (10MG/ML) 2ML VL IV SCH (12:45)
[2021-10-23] MEDS: APIXABAN 5 MG TAB PO SCH ×2 (12:45→22:05)
[2021-10-23 17:00] VITALS: BP 102/65
[2021-10-23 22:00] VITALS: BP 140/89
[2021-10-24 05:01] VITALS: BP 110/73
[2021-10-24] MEDS: SODIUM CHLOR 0.9% PF (SALINE LOCK) 10ML VIAL/SYR IV SCH ×3 (06:17→21:54)
[2021-10-24] MEDS: ACCU-CHEK COMFORT CURVE STRIP VI SCH ×4 (06:47→21:55)
[2021-10-24] MEDS: InsuLIN REG 1unit/0.01ml Soln (100units/ml) SC SCH ×4 (06:48→21:55)
[2021-10-24 09:15] VITALS: BP 115/76
[2021-10-24] MEDS: APIXABAN 5 MG TAB PO SCH ×2 (10:46→21:54)
[2021-10-24] MEDS: FAMOTIDINE (10MG/ML) 2ML VL IV SCH (10:46)
[2021-10-24] MEDS: METOPROLOL TARTRATE 25 MG TAB PO SCH ×2 (10:50→22:08)
[2021-10-24 12:30] VITALS: BP 125/84
[2021-10-24 16:12] VITALS: BP 112/79
[2021-10-24 22:00] VITALS: BP 122/76
[2021-10-25 05:00] VITALS: BP 114/81
[2021-10-25] MEDS: ACCU-CHEK COMFORT CURVE STRIP VI SCH ×4 (06:04→22:02)
[2021-10-25] MEDS: SODIUM CHLOR 0.9% PF (SALINE LOCK) 10ML VIAL/SYR IV SCH ×3 (06:04→22:01)
[2021-10-25] MEDS: InsuLIN REG 1unit/0.01ml Soln (100units/ml) SC SCH ×4 (06:15→22:40)
[2021-10-25 09:00] VITALS: BP 121/82
[2021-10-25] MEDS: FAMOTIDINE (10MG/ML) 2ML VL IV SCH (10:03)
[2021-10-25] MEDS: APIXABAN 5 MG TAB PO SCH ×2 (10:03→22:01)
[2021-10-25] MEDS: METOPROLOL TARTRATE 25 MG TAB PO SCH ×2 (10:04→22:41)
[2021-10-25 13:00] VITALS: BP 131/89
[2021-10-25 22:00] VITALS: BP 126/78
[2021-10-26 05:00] VITALS: BP 134/88
[2021-10-26 05:14] LABS: Calcium 8.3 mg/dL (8.5-10.1); Potassium 4.3 mmol/L (3.5-5.1)
[2021-10-26] MEDS: ACCU-CHEK COMFORT CURVE STRIP VI SCH ×2 (06:09→12:39)
[2021-10-26] MEDS: SODIUM CHLOR 0.9% PF (SALINE LOCK) 10ML VIAL/SYR IV SCH ×2 (06:09→15:06)
[2021-10-26] MEDS: InsuLIN REG 1unit/0.01ml Soln (100units/ml) SC SCH ×2 (06:11→12:55)
[2021-10-26 07:57] LABS: Basophils # (auto) 0 10 ^3/uL (0-0.2); Basophils % (auto) 0.5 % (0.0-2.0); Eosinophils # (auto) 0.1 10 ^3/uL (0-0.8); Eosinophils % (auto) 0.9 % (0.0-7.0); Hematocrit 41.2 % (41.0-53.0); Hemoglobin 13.6 g/dL (13.5-17.5); Lymphocytes # (auto) 1.5 10 ^3/uL (0.4-5.4); Lymphocytes % (auto) 16.3 % (10.0-50.0); Mean Corpuscular Hemoglobin 29.5 pg (28.0-32.0); Mean Corpuscular Volume 89.5 fL (80.0-100.0); Monocytes # (auto) 0.8 10 ^3/uL (0-1.3); Monocytes % (auto) 8.6 % (0.0-12.0); Neutrophils # (auto) 6.6 10 ^3/uL (1.6-8.6); Neutrophils % (auto) 73.7 % (37.0-80.0); Red Blood Cells 4.61 10^6/uL (4.5-5.90); Red Cell Distribution Width 16.4 % (11.8-14.3); White Blood Cell 8.9 10^3/uL (4.4-10.8)
[2021-10-26 09:00] VITALS: BP 121/75
[2021-10-26] MEDS: APIXABAN 5 MG TAB PO SCH (09:44)
[2021-10-26] MEDS: METOPROLOL TARTRATE 25 MG TAB PO SCH (09:50)
[2021-10-26 13:00] VITALS: BP 106/72
== END 2021-10-26 16:08 | disposition home or self-care (01) | DRG 47 ==
LOC: ER 19:30 → TELE 10-22 02:09 → TELE-CENTR 10-22 09:02 → TELE-WESTW 10-23 06:27
PROVIDERS: ADMIT Nurse Practitioner Family; ATTEND Internal Medicine Pulmonary Disease
PROC: 4A10X4Z Monitoring of Central Nervous Electrical Activity, External Approach (ICD-10-PCS; principal; 2021-10-23)
DX: G45.9 Transient cerebral ischemic attack, unspecified (principal); E88.09 Other disorders of plasma-protein metabolism, not elsewhere classified; R53.1 Weakness; E11.65 Type 2 diabetes mellitus with hyperglycemia; Z20.822 Contact with and (suspected) exposure to COVID-19; E78.00 Pure hypercholesterolemia, unspecified; E78.5 Hyperlipidemia, unspecified; F17.200 Nicotine dependence, unspecified, uncomplicated; I10 Essential (primary) hypertension; I48.91 Unspecified atrial fibrillation; Z86.73 Personal history of transient ischemic attack (TIA), and cerebral infarction without residual deficits; Z79.84 Long term (current) use of oral hypoglycemic drugs
CPT/HCPCS: 36415; 70450; 70551; 71045; 80048; 80053; 81001; 82962; 83036; 83735; 84484; 85025; 85610; 93005; 95819; 97163; G0378; J1815; J3490

== ENCOUNTER 2022-01-10 17:07 | Inpatient (IN) | payer MEDICARE, MEDICAID ==
[~2022-01-10] VITALS: Ht 182.9 cm; Wt 66.2 kg
[~2022-01-10 17:07] MED LIST changes: -ALBUAER3 IN; +AMIO200T33 PO; -APIX5TAB PO; +APIX5TAB4 PO; +ATOR20TA PO; -CHOL500035 PO; -ZINC220C10 PO
[2022-01-10] MEDS ORDERED: SODIUM CHLORIDE 0.9% 500 ML IV ONE (17:45)
[2022-01-10] MEDS ORDERED: GLUCAGON HYDROCHLORIDE (RDNA) 1 MG VIAL IV ONE (17:45)
[2022-01-10 19:00] LABS: Basophils # (auto) 0 10 ^3/uL (0-0.2); Basophils % (auto) 0.3 % (0.0-2.0); Eosinophils # (auto) 0.1 10 ^3/uL (0-0.8); Eosinophils % (auto) 0.5 % (0.0-7.0); Hematocrit 38.7 % (41.0-53.0); Hemoglobin 12.7 g/dL (13.5-17.5); Lymphocytes # (auto) 1.4 10 ^3/uL (0.4-5.4); Lymphocytes % (auto) 11.8 % (10.0-50.0); Mean Corpuscular Hemoglobin 30.4 pg (28.0-32.0); Mean Corpuscular Hgb Conc. 32.8 g/dL (32.0-36.0); Mean Corpuscular Volume 92.9 fL (80.0-100.0); Monocytes % (auto) 8.7 % (0.0-12.0); Neutrophils # (auto) 9.1 10 ^3/uL (1.6-8.6); Neutrophils % (auto) 78.7 % (37.0-80.0); Red Blood Cells 4.16 10^6/uL (4.5-5.90); Red Cell Distribution Width 15.7 % (11.8-14.3); White Blood Cell 11.5 10^3/uL (4.4-10.8)
[2022-01-10 19:20] LABS: Albumin 2.5 g/dL (3.4-5.0); BUN/Creatinine Ratio 22.6; Calcium 8.5 mg/dL (8.5-10.1); Magnesium 1.9 mg/dL (1.6-2.6); Potassium 4.1 mmol/L (3.5-5.1)
[2022-01-10 19:22] LABS: Bilirubin, Total 1.3 mg/dL (0.2-1.0); Total Protein 6.6 g/dL (6.4-8.2)
[2022-01-10 19:23] LABS: INR 1.12 (0.9-1.15)
[2022-01-10] MEDS ORDERED: DEXTROSE (50%) 50ML SYRG IV PRN (20:45)
[2022-01-10] MEDS ORDERED: ACETAMINOPHEN 325 MG TAB PO PRN (20:45)
[2022-01-10] MEDS ORDERED: ONDANSETRON HCL 4 MG/2 ML VIAL IV PRN (20:45)
[2022-01-10] MEDS ORDERED: MORPHINE SULFATE INJ 2 MG/ml SYRG IV PRN (20:45)
[2022-01-10] MEDS ORDERED: NITROGLYCERIN 0.4 MG SL TAB SL PRN (20:45)
[2022-01-10] MEDS: ACCU-CHEK COMFORT CURVE STRIP VI SCH (22:00)
[2022-01-10] MEDS: InsuLIN REG 1unit/0.01ml Soln (100units/ml) SC SCH (22:00)
[2022-01-10] MEDS: ATORVASTATIN 20 MG TAB PO SCH (22:00)
[2022-01-10] MEDS ORDERED: APIXABAN 2.5 MG TAB PO SCH (22:00)
[2022-01-11] VITALS (18 sets, daily range): BP systolic 96–165; BP diastolic 54–70
[2022-01-11 04:47] LABS: Basophils # (auto) 0 10 ^3/uL (0-0.2); Basophils % (auto) 0.3 % (0.0-2.0); Eosinophils # (auto) 0.1 10 ^3/uL (0-0.8); Hematocrit 34.8 % (41.0-53.0); Hemoglobin 11.9 g/dL (13.5-17.5); Lymphocytes # (auto) 1.6 10 ^3/uL (0.4-5.4); Lymphocytes % (auto) 16.3 % (10.0-50.0); Mean Corpuscular Hemoglobin 31.3 pg (28.0-32.0); Mean Corpuscular Hgb Conc. 34.2 g/dL (32.0-36.0); Mean Corpuscular Volume 91.7 fL (80.0-100.0); Monocytes # (auto) 0.9 10 ^3/uL (0-1.3); Neutrophils # (auto) 7.3 10 ^3/uL (1.6-8.6); Neutrophils % (auto) 73.4 % (37.0-80.0); Nucleated Red Blood Cells % 0.1 %; Red Cell Distribution Width 15.8 % (11.8-14.3)
[2022-01-11 05:07] LABS: Albumin 2.3 g/dL (3.4-5.0); BUN/Creatinine Ratio 22.8; Calcium 7.9 mg/dL (8.5-10.1); Potassium 3.6 mmol/L (3.5-5.1)
[2022-01-11 05:10] LABS: Bilirubin, Total 1.2 mg/dL (0.2-1.0); Total Protein 6.1 g/dL (6.4-8.2)
[2022-01-11] MEDS: ACCU-CHEK COMFORT CURVE STRIP VI SCH ×4 (06:33→20:20)
[2022-01-11] MEDS: InsuLIN REG 1unit/0.01ml Soln (100units/ml) SC SCH ×4 (06:33→22:00)
[2022-01-11] MEDS ORDERED: PANTOPRAZOLE 40 MG TAB PO SCH (10:00)
[2022-01-11 11:02] LABS: Urine Bacteria FEW /hpf (None Seen); Urine Blood Negative /uL (Negative); Urine Mucus FEW (None Seen); Urine WBC 5 /hpf (0 - 3)
[2022-01-11] MEDS ORDERED: hydrALAZINE HCL 20 MG/ML VL IV PRN (11:45)
[2022-01-11] MEDS: D5W/SOD CHL 0.45%/KCL 20MEQ 1,000 ML IV SCH (15:09)
[2022-01-11] MEDS: ATORVASTATIN 20 MG TAB PO SCH (20:37)
[2022-01-12] VITALS (8 sets, daily range): BP systolic 132–153; BP diastolic 57–70
[2022-01-12 05:01] LABS: Basophils # (auto) 0 10 ^3/uL (0-0.2); Basophils % (auto) 0.3 % (0.0-2.0); Eosinophils # (auto) 0.2 10 ^3/uL (0-0.8); Eosinophils % (auto) 1.7 % (0.0-7.0); Lymphocytes # (auto) 1.5 10 ^3/uL (0.4-5.4); Lymphocytes % (auto) 15.2 % (10.0-50.0); Mean Corpuscular Hemoglobin 30.9 pg (28.0-32.0); Mean Corpuscular Hgb Conc. 33.4 g/dL (32.0-36.0); Mean Corpuscular Volume 92.6 fL (80.0-100.0); Monocytes # (auto) 0.9 10 ^3/uL (0-1.3); Monocytes % (auto) 9.8 % (0.0-12.0); Red Blood Cells 3.88 10^6/uL (4.5-5.90); Red Cell Distribution Width 15.8 % (11.8-14.3); White Blood Cell 9.6 10^3/uL (4.4-10.8)
[2022-01-12 05:21] LABS: BUN/Creatinine Ratio 14.9; Calcium 7.9 mg/dL (8.5-10.1); Potassium 3.5 mmol/L (3.5-5.1)
[2022-01-12] MEDS: InsuLIN REG 1unit/0.01ml Soln (100units/ml) SC SCH ×4 (05:30→21:28)
[2022-01-12] MEDS: ACCU-CHEK COMFORT CURVE STRIP VI SCH ×4 (05:30→21:20)
[2022-01-12] MEDS: D5W/SOD CHL 0.45%/KCL 20MEQ 1,000 ML IV SCH (09:57)
[2022-01-12] MEDS: PANTOPRAZOLE 40 MG/10 ML VIAL INJ IV SCH (09:57)
[2022-01-12] MEDS ORDERED: ENOXAPARIN SOD 60 MG/0.6 ML SYRINGE SC ONE (20:45)
[2022-01-12] MEDS: ATORVASTATIN 20 MG TAB PO SCH (21:15)
[2022-01-13] VITALS (8 sets, daily range): BP systolic 143–153; BP diastolic 62–99
[2022-01-13 05:02] LABS: Basophils # (auto) 0 10 ^3/uL (0-0.2); Basophils % (auto) 0.4 % (0.0-2.0); Eosinophils # (auto) 0.2 10 ^3/uL (0-0.8); Eosinophils % (auto) 1.9 % (0.0-7.0); Hematocrit 33.3 % (41.0-53.0); Hemoglobin 11.4 g/dL (13.5-17.5); Lymphocytes # (auto) 1.7 10 ^3/uL (0.4-5.4); Lymphocytes % (auto) 16.2 % (10.0-50.0); Mean Corpuscular Hemoglobin 31.4 pg (28.0-32.0); Mean Corpuscular Hgb Conc. 34.1 g/dL (32.0-36.0); Mean Corpuscular Volume 92.1 fL (80.0-100.0); Monocytes # (auto) 1.1 10 ^3/uL (0-1.3); Monocytes % (auto) 9.8 % (0.0-12.0); Neutrophils # (auto) 7.7 10 ^3/uL (1.6-8.6); Neutrophils % (auto) 71.7 % (37.0-80.0); Red Blood Cells 3.62 10^6/uL (4.5-5.90); Red Cell Distribution Width 15.4 % (11.8-14.3); White Blood Cell 10.7 10^3/uL (4.4-10.8)
[2022-01-13 05:15] LABS: Calcium 7.5 mg/dL (8.5-10.1); Potassium 3.7 mmol/L (3.5-5.1)
[2022-01-13 05:18] LABS: BUN/Creatinine Ratio 16.7
[2022-01-13] MEDS: ACCU-CHEK COMFORT CURVE STRIP VI SCH ×4 (06:23→22:36)
[2022-01-13] MEDS: InsuLIN REG 1unit/0.01ml Soln (100units/ml) SC SCH ×4 (06:24→22:38)
[2022-01-13] MEDS: D5W/SOD CHL 0.45%/KCL 20MEQ 1,000 ML IV SCH (06:28)
[2022-01-13] MEDS: PANTOPRAZOLE 40 MG/10 ML VIAL INJ IV SCH (10:00)
[2022-01-13] MEDS ORDERED: amLODIPine BESYLATE 5 MG TAB PO ONE (12:00)
[2022-01-13] MEDS ORDERED: fentaNYL 25MCG/HR 25 MCG/HR PAT TD SCH (19:00)
[2022-01-13] MEDS: ATORVASTATIN 20 MG TAB PO SCH (22:36)
[2022-01-14] MEDS: ACCU-CHEK COMFORT CURVE STRIP VI SCH ×4 (07:00→22:28)
[2022-01-14] MEDS: InsuLIN REG 1unit/0.01ml Soln (100units/ml) SC SCH ×4 (07:00→22:00)
[2022-01-14 09:45] LABS: Basophils # (auto) 0.1 10 ^3/uL (0-0.2); Basophils % (auto) 0.4 % (0.0-2.0); Eosinophils # (auto) 0.1 10 ^3/uL (0-0.8); Eosinophils % (auto) 0.9 % (0.0-7.0); Hematocrit 33.8 % (41.0-53.0); Hemoglobin 11.5 g/dL (13.5-17.5); Lymphocytes # (auto) 1.1 10 ^3/uL (0.4-5.4); Lymphocytes % (auto) 8.3 % (10.0-50.0); Mean Corpuscular Hemoglobin 31.3 pg (28.0-32.0); Mean Corpuscular Hgb Conc. 34.1 g/dL (32.0-36.0); Mean Corpuscular Volume 91.9 fL (80.0-100.0); Monocytes # (auto) 1.2 10 ^3/uL (0-1.3); Monocytes % (auto) 9.1 % (0.0-12.0); Neutrophils # (auto) 10.5 10 ^3/uL (1.6-8.6); Neutrophils % (auto) 81.3 % (37.0-80.0); Red Blood Cells 3.68 10^6/uL (4.5-5.90); White Blood Cell 12.9 10^3/uL (4.4-10.8)
[2022-01-14 09:57] LABS: Calcium 7.7 mg/dL (8.5-10.1); Potassium 4.3 mmol/L (3.5-5.1)
[2022-01-14 10:00] VITALS: BP 125/58
[2022-01-14] MEDS: PANTOPRAZOLE 40 MG/10 ML VIAL INJ IV SCH (10:00)
[2022-01-14] MEDS: amLODIPine BESYLATE 5 MG TAB PO SCH (10:00)
[2022-01-14 10:01] LABS: BUN/Creatinine Ratio 13.7; Bilirubin, Total 1.1 mg/dL (0.2-1.0); Total Protein 5.9 g/dL (6.4-8.2)
[2022-01-14 11:00] VITALS: BP 136/62
[2022-01-14] MEDS ORDERED: FUROSEMIDE 40 MG TAB PO ONE (11:00)
[2022-01-14] MEDS ORDERED: POTASSIUM EFFERVESENT TAB 25 MEQ PO ONE (11:00)
[2022-01-14 12:00] VITALS: BP 126/60
[2022-01-14 14:00] VITALS: BP 125/61
[2022-01-14 20:00] VITALS: BP 139/57
[2022-01-15] VITALS (7 sets, daily range): BP systolic 130–151; BP diastolic 48–77
[2022-01-15 05:28] LABS: Basophils # (auto) 0 10 ^3/uL (0-0.2); Basophils % (auto) 0.4 % (0.0-2.0); Eosinophils # (auto) 0.2 10 ^3/uL (0-0.8); Eosinophils % (auto) 1.8 % (0.0-7.0); Hematocrit 33.5 % (41.0-53.0); Hemoglobin 11.2 g/dL (13.5-17.5); Lymphocytes # (auto) 1.5 10 ^3/uL (0.4-5.4); Lymphocytes % (auto) 13.1 % (10.0-50.0); Mean Corpuscular Hemoglobin 30.4 pg (28.0-32.0); Mean Corpuscular Hgb Conc. 33.4 g/dL (32.0-36.0); Mean Corpuscular Volume 91.1 fL (80.0-100.0); Monocytes # (auto) 1.1 10 ^3/uL (0-1.3); Monocytes % (auto) 9.5 % (0.0-12.0); Neutrophils # (auto) 8.7 10 ^3/uL (1.6-8.6); Neutrophils % (auto) 75.2 % (37.0-80.0); Red Blood Cells 3.68 10^6/uL (4.5-5.90); Red Cell Distribution Width 15.5 % (11.8-14.3); White Blood Cell 11.6 10^3/uL (4.4-10.8)
[2022-01-15 05:35] LABS: Potassium 4.2 mmol/L (3.5-5.1)
[2022-01-15 05:38] LABS: Albumin 1.8 g/dL (3.4-5.0); BUN/Creatinine Ratio 13.8; Calcium 7.5 mg/dL (8.5-10.1)
[2022-01-15 05:41] LABS: Bilirubin, Total 0.9 mg/dL (0.2-1.0); Total Protein 5.5 g/dL (6.4-8.2)
[2022-01-15] MEDS: InsuLIN REG 1unit/0.01ml Soln (100units/ml) SC SCH ×3 (07:00→16:42)
[2022-01-15] MEDS: ACCU-CHEK COMFORT CURVE STRIP VI SCH ×3 (07:29→16:31)
[2022-01-15] MEDS: PANTOPRAZOLE 40 MG/10 ML VIAL INJ IV SCH (10:00)
[2022-01-15] MEDS: amLODIPine BESYLATE 5 MG TAB PO SCH (10:00)
[2022-01-16] MEDS: ACCU-CHEK COMFORT CURVE STRIP VI SCH ×5 (00:35→22:08)
[2022-01-16] MEDS: InsuLIN REG 1unit/0.01ml Soln (100units/ml) SC SCH ×5 (00:38→22:00)
[2022-01-16 05:00] VITALS: BP 143/59
[2022-01-16 09:00] VITALS: BP 137/53
[2022-01-16] MEDS: PANTOPRAZOLE 40 MG/10 ML VIAL INJ IV SCH (09:51)
[2022-01-16] MEDS: amLODIPine BESYLATE 5 MG TAB PO SCH (09:53)
[2022-01-16 13:00] VITALS: BP 134/59
[2022-01-16 22:00] VITALS: BP 149/58
[2022-01-17 05:00] VITALS: BP 141/60
[2022-01-17] MEDS: ACCU-CHEK COMFORT CURVE STRIP VI SCH ×2 (06:38→11:14)
[2022-01-17] MEDS: InsuLIN REG 1unit/0.01ml Soln (100units/ml) SC SCH ×2 (06:39→12:05)
[2022-01-17] MEDS ORDERED: AMLO-496 PO (10:33)
[2022-01-17 14:15] VITALS: BP 130/56
== END 2022-01-17 15:40 | disposition home or self-care (01) | DRG 201 ==
LOC: ER 17:07 → TELE 20:55 → DOU IN ICU 22:53 → TELE-CENTR 01-15 15:23
PROVIDERS: ADMIT Nurse Practitioner; ATTEND Internal Medicine
DX: I49.5 Sick sinus syndrome (principal); I50.31 Acute diastolic (congestive) heart failure; E43 Unspecified severe protein-calorie malnutrition; D68.69 Other thrombophilia; F03.92 Unspecified dementia, unspecified severity, with psychotic disturbance; E11.51 Type 2 diabetes mellitus with diabetic peripheral angiopathy without gangrene; R62.7 Adult failure to thrive; E78.5 Hyperlipidemia, unspecified; I48.0 Paroxysmal atrial fibrillation; Z20.822 Contact with and (suspected) exposure to COVID-19; I11.0 Hypertensive heart disease with heart failure; R63.4 Abnormal weight loss; Z68.1 Body mass index [BMI] 19.9 or less, adult; Z86.73 Personal history of transient ischemic attack (TIA), and cerebral infarction without residual deficits
CPT/HCPCS: 36415; 70450; 71045; 76705; 80048; 80053; 81001; 82962; 83036; 83605; 83735; 83880; 84443; 84484; 85025; 85610; 85730; 87081; 93005; 93306; 93886; 96361; 96374; 97110; 97116; 97163; 97530; C9113; G0378; J1815